=== PATIENT | female | born 1995 | race Caucasian/White ===

== ENCOUNTER 2016-04-07 17:37 | Emergency (ER) | payer BC, OTHER ==
[~2016-04-07] VITALS: Ht 170.2 cm; Wt 63.5 kg
[2016-04-07 18:06] VITALS: BP 120/77; TEMP 37.1; Ht 170.2 cm; Wt 63.5 kg
[2016-04-07] MEDS ORDERED: ALBUT/IPRATROP 3MG/0.5MG NEB 3 ML VIAL INH ONE (18:30)
--- NOTE | 2016-04-07 18:41 | DIAGNOSTIC IMAGING REPORT ---
CHEST 2 VIEWS ROUTINE CLINICAL HISTORY: Persistent cough. COMPARISON STUDY: No previous studies for comparison. FINDINGS: Lung volumes are normal. No pneumothorax or pleural effusion is present. No consolidation is identified. Cardiac size is normal. Mediastinal contours are normal. There is no evidence of pulmonary edema. IMPRESSION: No acute cardiopulmonary findings. Electronically signed by: Evan Benjamin M.D. 04/07/2016 6:40 PM Dictated Date/Time: 04/07/2016 6:39 PM
[2016-04-07] MEDS ORDERED: AZIT250T PO (19:21)
[2016-04-07] MEDS ORDERED: PRED20TA2 PO (19:21)
[2016-04-07] MEDS ORDERED: [UNRECOGNIZED DRUG - REMARK] PO (19:22)
[2016-04-07] MEDS ORDERED: AZITHROMYCIN 250 MG TAB PO ONE (19:30)
[2016-04-07 19:37] VITALS: PULSE 72; O2SAT 98
--- NOTE | 2016-04-07 23:51 | EMERGENCY ROOM VISIT NOTE ---
History First contact with patient: 18:12 Chief Complaint: COUGH Stated Complaint: COUGH, CHEST PAIN Nursing Triage Summary: Triage note: Pt reports cough x 3 weeks. pt reports "sometimes i cough up some white mucus." History of Present Illness The patient is a 20 year old female who presents to the Emergency Room with complaints of persisting cough for the past 3 weeks. The patient initially was seen and evaluated at a local urgent care center about 2 weeks ago. The patient states that her symptoms have not worsened since then, but have not improved. She has not had fever or chills. At times she will have some posttussive chest pain, primarily in her back. She has not had significant difficulty breathing, dyspnea on exertion, or shortness of breath. Her cough is typically nonproductive. She did try [id number] cough medicine without relief. She rates her current discomfort a 5/10. She does not have a history of DVT or PE. No recent travel or control. She does not smoke. Review of Systems More than 10 systems were reviewed and otherwise negative with the exception of history of present illness. Past Medical/Surgical History No chronic medical disease Family History No pertinent family history Social History Smoking Status: Never Smoker Occupation Status: [employer] student Current/Historical Medications Scheduled Azithromycin (Zithromax), 250 MG PO DAILY Prednisone (Prednisone Tab), 2 TAB PO DAILY Scheduled PRN [Cough Suppressant], 1 DOSE PO UD PRN for Cough Allergies Coded Allergies: No Known Allergies (Unverified , 04/07/16) Physical Exam Vital Signs Date Time Temp Pulse Resp B/P Pulse Ox O2 Delivery O2 Flow Rate FiO2 04/07/16 19:37 72 18 98 04/07/16 18:06 37.1 68 18 120/77 98 Room Air Pain Rating (0-10): 0 Physical Exam VITALS: Vitals are noted on the nurse's note and reviewed by myself. Vital signs stable. GENERAL: Well-developed, well-nourished, white female, who is in no acute distress and resting comfortably. Patient is cooperative with the examination. HEAD: Normocephalic atraumatic. EARS: External ear normal. External auditory canals clear, tympanic membranes pearly nevarez without erythema or effusion bilaterally. EYES: Pupils equal round and reactive to light and accommodation. Conjunctivae without injection, sclerae without icterus. Extraocular movements intact. NOSE: Patent, turbinates without inflammation or discharge. MOUTH: Mucous membranes moist. Tonsils are not enlarged. Pharynx without erythema, blood, or exudate. Uvula midline. Airway patent. NECK: Supple without nuchal rigidity. No lymphadenopathy. No thyromegaly. Cervical spine is nontender. HEART: Regular rate and rhythm without murmurs gallops or rubs. LUNGS: Coarse breath sounds with scattered rhonchi throughout Medical Decision & Procedures ER Provider Diagnostic Interpretation: CHEST 2 VIEWS ROUTINE CLINICAL HISTORY: Persistent cough. COMPARISON STUDY: No previous studies for comparison. FINDINGS: Lung volumes are normal. No pneumothorax or pleural effusion is present. No consolidation is identified. Cardiac size is normal. Mediastinal contours are normal. There is no evidence of pulmonary edema. IMPRESSION: No acute cardiopulmonary findings. Medications Administered Medications (Trade) Dose Ordered Sig/Sayda Route Start Time Stop Time Status Last Admin Dose Admin Albuterol/ Ipratropium (Duoneb) 3 ml NOW ONCE INH 04/07/16 18:30 04/07/16 18:31 DC 04/07/16 18:48 3 ML Azithromycin (Zithromax Tab) 500 mg NOW ONCE PO 04/07/16 19:30 04/07/16 19:31 DC 04/07/16 19:34 500 MG ED Course Physical exam and history were performed. Nursing notes and EMR were reviewed. Patient appears to have what sounds like acute bronchitis on examination. The patient was given a DuoNeb treatment, and reevaluation of her lungs showed significantly improved air exchange. She did continue with some scattered rhonchi, however this was notably improved from her initial evaluation. The chest x-ray was also performed, and does not show evidence of acute findings. Because the patient has been ill for several weeks and will start her on a course of Zithromax and provide her a short course of prednisone. I do recommend that she follow with [facility] this week for further care and management. She was otherwise invited back to the ER with any new, worsening, or concerning symptoms. She voiced understanding of this plan and was pleased with plan of care. The chart was completed utilizing [employer] Software. Grammatical errors, random word insertions, pronoun errors, and incomplete sentences are an occasional consequence of this system due to software limitations, ambient noise, and hardware issues. Any formal questions or concerns about the content, text, or information contained within the body of this dictation should be directly addressed to the provider for clarification. . Medical Decision Differential diagnosis: Etiologies such as viral syndrome, otitis, pharyngitis, pneumonia, influenza, meningitis, urinary tract infection, sepsis, bacteremia, as well as others were entertained. Impression Primary Impression: Acute bronchitis Departure Information Dispostion Home / Self-Care Condition GOOD Prescriptions Prednisone (Prednisone Tab) 20 Mg Tab 2 TAB PO DAILY for 5 Days, #10 TAB Prov: Rodri Epps PA-C 04/07/16 Azithromycin (Zithromax) 250 Mg Tab 250 MG PO DAILY for 4 Days, #4 TAB Prov: Rodri Epps PA-C 04/07/16 Forms HOME CARE DOCUMENTATION FORM, IMPORTANT VISIT INFORMATION Patient Instructions My [facility] Additional Instructions You were seen and evaluated today on an emergency basis only. This is not a substitute for, or an effort to provide, complete comprehensive medical care. It is not possible to recognize and treat all injuries or illnesses in a single emergency department visit. For this reason it is recommended that you followup with [facility] next week with any ongoing or persistent symptoms. Take Zithromax 250 mg daily for the next 4 days. Take prednisone 40 mg daily for the next 5 days. It is recommended to take this in the morning with food. You are welcome to return to the emergency department anytime with new, worsening, or concerning symptoms.
== END 2016-04-07 19:38 | disposition home or self-care (01) ==
LOC: C.EDB 17:39 → C.EDD 19:38
DX: J20.9 Acute bronchitis, unspecified (principal)